=== PATIENT | male | born 1970 | race Two or more races ===

== ENCOUNTER 2021-10-23 14:30 | Emergency (ER) | payer SELFPAY ==
[2021-10-23] MEDS ORDERED: ASPIRIN 81 MG CHEWABLE TABLET ONE (15:10)
[2021-10-23 15:20] LABS: Absolute Lymphocytes (CBC) 1.5 K/uL (0.7-4.9); Hematocrit 38.1 % (39.6-49.0); Lymphocytes % 25.8 % (15.3-44.8); MCV 79.2 fL (80-100); MPV 8.8 fL (7.6-11.3); RBC Red Blood Cell Count 4.81 M/uL (4.33-5.43)
[2021-10-23 15:25] LABS: Protime INR 1.09
[2021-10-23 15:37] LABS: Albumin 4.2 g/dL (3.4-5.0); Bilirubin Direct 0.1 mg/dL (0-0.2); Bilirubin Total 0.6 mg/dL (0.2-1.0); Magnesium 2.1 mg/dL (1.8-2.4); Potassium 4.1 mmol/L (3.5-5.1); Protein, Total 7.9 g/dL (6.4-8.2); Troponin High Sensitivity 4.3 pg/mL (<58.9)
--- NOTE | 2021-10-23 16:26 | RAD REPORT ---
EXAM DESCRIPTION: RAD - Chest Single View - 10/23/2021 4:21 pm CLINICAL HISTORY: mid back pain COMPARISON: No comparisons FINDINGS: Lines: None. Lungs: No evidence of edema or pneumonia. Pleural: No significant pleural effusions or pneumothorax. Cardiac: The heart size is within normal limits. Bones: No acute fractures. Other: IMPRESSION: No acute cardiopulmonary disease.
--- NOTE | 2021-10-23 16:48 | ER ---
Nurse's Notes [facility] Name: Andrew Gaming Age: 51 yrs Sex: Male : 1970 Arrival Date: 10/23/2021 Time: 14:34 Bed 20 Private MD: Diagnosis: Dorsalgia, unspecified Presentation: 10/23 14:38 Chief complaint: Patient states: pain under Left shoulder blade. stated began yesterday vg1 morning. Coronavirus screen: Vaccine status: Patient reports receiving the 2nd dose of the covid vaccine. Client denies travel out of the [place] in the last 14 days. Ebola Screen: Patient denies exposure to infectious person. Patient denies travel to an Ebola-affected area in the 21 days before illness onset. Initial Sepsis Screen: Does the patient meet any 2 criteria? No. Patient's initial sepsis screen is negative. Does the patient have a suspected source of infection? No. Patient's initial sepsis screen is negative. Risk Assessment: Do you want to hurt yourself or someone else? Patient reports no desire to harm self or others. Onset of symptoms was October 22, 2021. 14:38 Method Of Arrival: Ambulatory vg1 14:38 Acuity: ADE 4 vg1 Triage Assessment: 14:42 General: Appears uncomfortable, Behavior is calm, cooperative. Pain: Complains of pain vg1 in left subscapular area Pain currently is 6 out of 10 on a pain scale. Musculoskeletal: Circulation, motion, and sensation intact. Historical: - Allergies: 14:40 No Known Allergies; vg1 - Home Meds: 14:40 B Complex-Vitamin B12 oral [Active]; Aspirin Oral [Active]; prasugrel oral [Active]; vg1 atorvastatin oral [Active]; fenofibrate oral [Active]; - PMHx: 14:42 Hypercholesterolemia; vg1 - Immunization history:: Client reports receiving the 2nd dose of the Covid vaccine. - Social history:: Smoking status: Patient denies any tobacco usage or history of. Screenin:44 Abuse screen: Denies threats or abuse. Nutritional screening: No deficits noted. tw2 Tuberculosis screening: No symptoms or risk factors identified. Fall Risk None identified. Assessment: 15:13 General: Appears in no apparent distress. well groomed, Behavior is calm, cooperative, tw2 appropriate for age. Pain: Complains of pain in left subscapular area. Neuro: Level of Consciousness is awake, alert, obeys commands, Oriented to person, place, time, situation. Cardiovascular: Capillary refill < 3 seconds. Respiratory: Airway is patent Respiratory effort is even, unlabored, Respiratory pattern is regular, symmetrical. GI: No signs and/or symptoms were reported involving the gastrointestinal system. : No signs and/or symptoms were reported regarding the genitourinary system. Derm: Skin is intact, is healthy with good turgor. Musculoskeletal: Range of motion: intact in all extremities. 16:25 Reassessment: Patient appears in no apparent distress at this time. No changes from tw2 previously documented assessment. Patient and/or family updated on plan of care and expected duration. Pain level reassessed. Patient is alert, oriented x 3, equal unlabored respirations, skin warm/dry/pink. 16:59 Reassessment: Patient appears in no apparent distress at this time. No changes from tw2 previously documented assessment. Patient and/or family updated on plan of care and expected duration. Pain level reassessed. Patient is alert, oriented x 3, equal unlabored respirations, skin warm/dry/pink. Vital Signs: 14:38 BP 126 / 92; Pulse 74; Resp 16; Temp 98.2; Pulse Ox 100% ; Weight 92.99 kg; Height 5 vg1 ft. 11 in. (180.34 cm); Pain 6/10; 16:25 BP 144 / 91; Pulse 81; Resp 22; Pulse Ox 100% on R/A; tw2 17:00 BP 137 / 94; Pulse 67; Resp 17; Pulse Ox 100% on R/A; tw2 14:38 Body Mass Index 28.59 (92.99 kg, 180.34 cm) vg1 ED Course: 14:34 Patient arrived in ED. mr 14:36 Romel Nieves PA is PHCP. cp 14:36 Terri Douglas is Attending Physician. cp 14:40 Triage completed. vg1 14:42 Arm band placed on. vg1 14:44 Nataly Chavarria, KRISHAN is Primary Nurse. tw2 14:44 Bed in low position. Call light in reach. Pulse ox on. NIBP on. tw2 15:10 Inserted saline lock: 20 gauge in right antecubital area, using aseptic technique. tw2 Blood collected. 15:11 EKG done, by ED staff, reviewed by Romel FUENTES. em1 16:23 XRAY Chest (1 view) In Process Unspecified. EDMS 16:59 No provider procedures requiring assistance completed. IV discontinued, intact, tw2 bleeding controlled, No redness/swelling at site. Pressure dressing applied. Administered Medications: 15:10 Drug: Aspirin Chewable Tablet 324 mg Route: PO; tw2 17:00 Follow up: Response: No adverse reaction tw2 16:53 Drug: Lidoderm Patch 5 % (700 mg/patch) 1 patches {Note: under LEFT shoulder blade.} tw2 Route: Topical; Site: affected area; 16:53 Drug: Flexeril (cyclobenzaprine) 10 mg Route: PO; tw2 17:00 Follow up: Response: No adverse reaction tw2 Medication: 14:44 VIS not applicable for this client. tw2 Outcome: 16:48 Discharge ordered by . mabel 17:00 Discharged to home ambulatory, with significant other. tw2 17:00 Condition: stable 17:00 Discharge instructions given to patient, significant other, Instructed on discharge instructions, follow up and referral plans. no drinking with medication, no driving heavy equipment, medication usage, Demonstrated understanding of instructions, follow-up care, medications, Prescriptions given X 3. 17:01 Patient left the ED. tw2 Signatures: Dispatcher [employer] EDIN Janna Aguilar, Dany em1 Romel Nieves PA PA cp Wise, Tara, RN RN tw2 Erika Villagran RN RN vg1 Corrections: (The following items were deleted from the chart) 17:01 17:00 Discharge instructions given to patient, significant other, Instructed on tw2 discharge instructions, follow up and referral plans. no drinking with medication, no driving heavy equipment, medication usage, Demonstrated understanding of instructions, follow-up care, medications, Prescriptions given X 2, tw2
--- NOTE | 2021-10-23 16:48 | EDPHYS ---
Physician Documentation [facility] Name: Andrew Gaming Age: 51 yrs Sex: Male : 1970 Arrival Date: 10/23/2021 Time: 14:34 Bed 20 Private MD: ED Physician Terri Douglas HPI: 10/23 15:00 This 51 yrs old Male presents to ER via Ambulatory with complaints of Back Pain. cp 15:00 The patient presents with pain that is acute, with no known mechanism of injury. The cp symptoms are located in the left subscapular area. Onset: The symptoms/episode began/occurred yesterday. The pain does not radiate. Associated signs and symptoms: Pertinent negatives: abdominal pain, chest pain, constipation, fever, numbness, weakness. The problem was sustained from unknown cause. Severity of symptoms: in the emergency department the symptoms are unchanged, despite home interventions. Patient c/o pain to left subscapular area of back that started yesterday. Denies injury. Concerned that pain may be caused by heart. Historical: - Allergies: 14:40 No Known Allergies; vg1 - Home Meds: 14:40 B Complex-Vitamin B12 oral [Active]; Aspirin Oral [Active]; prasugrel oral [Active]; vg1 atorvastatin oral [Active]; fenofibrate oral [Active]; - PMHx: 14:42 Hypercholesterolemia; vg1 - Immunization history:: Client reports receiving the 2nd dose of the Covid vaccine. - Social history:: Smoking status: Patient denies any tobacco usage or history of. ROS: 15:05 Back: Positive for pain at rest, pain with movement, of the left subscapular area, cp Negative for injury or acute deformity. 15:05 Constitutional: Negative for body aches, chills, fever, poor PO intake. cp 15:05 Cardiovascular: Negative for chest pain, edema, palpitations. 15:05 Respiratory: Negative for cough, shortness of breath, wheezing. 15:05 Eyes: Negative for injury, pain, redness, and discharge. cp 15:05 ENT: Negative for drainage from ear(s), ear pain, sore throat, difficulty swallowing, cp difficulty handling secretions. 15:05 Abdomen/GI: Negative for abdominal pain, nausea, vomiting, and diarrhea. 15:05 Neuro: Negative for altered mental status, dizziness, headache, numbness, weakness. 15:05 All other systems are negative. Exam: 15:10 Constitutional: The patient appears in no acute distress, alert, awake, cp non-diaphoretic, non-toxic, well developed, well nourished. 15:10 Head/Face: Normocephalic, atraumatic. cp 15:10 Eyes: Periorbital structures: appear normal, Conjunctiva: normal, no exudate, no injection, Sclera: no appreciated abnormality, Lids and lashes: appear normal, bilaterally. 15:10 ENT: External ear(s): are unremarkable, Nose: is normal, Mouth: Lips: moist, Oral mucosa: pink and intact, moist, Posterior pharynx: Airway: no evidence of obstruction, patent. 15:10 Neck: C-spine: vertebral tenderness, is not appreciated, crepitus, is not appreciated, ROM/movement: is normal, is supple, without pain, no range of motions limitations, no nuchal rigidity. 15:10 Chest/axilla: Inspection: normal, Palpation: is normal, no crepitus, no tenderness. 15:10 Cardiovascular: Rate: normal, Rhythm: regular, Edema: is not appreciated, JVD: is not appreciated. 15:10 Respiratory: the patient does not display signs of respiratory distress, Respirations: normal, no use of accessory muscles, no retractions, labored breathing, is not present, Breath sounds: are clear throughout, no decreased breath sounds, no stridor, no wheezing. 15:10 Abdomen/GI: Inspection: abdomen appears normal, Bowel sounds: active, all quadrants, cp Palpation: abdomen is soft and non-tender, in all quadrants. 15:10 Back: pain, that is moderate, of the left subscapular area, ROM is normal, vertebral tenderness, is not appreciated. 15:10 Neuro: Orientation: to person, place \T\ time. Mentation: is normal, Motor: moves all fours, strength is normal, Sensation: is normal. 15:10 Skin: cellulitis, is not appreciated, no rash present. cp Vital Signs: 14:38 BP 126 / 92; Pulse 74; Resp 16; Temp 98.2; Pulse Ox 100% ; Weight 92.99 kg; Height 5 vg1 ft. 11 in. (180.34 cm); Pain 6/10; 16:25 BP 144 / 91; Pulse 81; Resp 22; Pulse Ox 100% on R/A; tw2 17:00 BP 137 / 94; Pulse 67; Resp 17; Pulse Ox 100% on R/A; tw2 14:38 Body Mass Index 28.59 (92.99 kg, 180.34 cm) vg1 MDM: 14:50 Patient medically screened. cp 16:48 Data reviewed: vital signs, nurses notes, lab test result(s), EKG, radiologic studies, cp plain films. 16:48 Differential diagnosis: Cholelithiasis vertebral fracture, strain, acute LA, pulmonary cp embolism, pulled muscle. Test interpretation: by ED physician or midlevel provider: ECG, plain radiologic studies. Counseling: I had a detailed discussion with the patient and/or guardian regarding: the historical points, exam findings, and any diagnostic results supporting the discharge/admit diagnosis, lab results, radiology results, the need for outpatient follow up, a family practitioner, to return to the emergency department if symptoms worsen or persist or if there are any questions or concerns that arise at home. 10/23 14:54 Order name: Basic Metabolic Panel 10/23 14:54 Order name: CBC with Diff 10/23 14:54 Order name: D-Dimer 10/23 14:54 Order name: LFT's 10/23 14:54 Order name: Magnesium 10/23 14:54 Order name: NT PRO-BNP 10/23 14:54 Order name: PT-INR 10/23 14:54 Order name: Troponin HS 10/23 14:54 Order name: XRAY Chest (1 view) 10/23 14:54 Order name: EKG; Complete Time: 14:55 10/23 14:54 Order name: Cardiac monitoring; Complete Time: 15:13 10/23 14:54 Order name: EKG - Nurse/Tech; Complete Time: 15:11 10/23 14:54 Order name: IV Saline Lock; Complete Time: 15:13 10/23 14:54 Order name: Labs collected and sent; Complete Time: 15:13 10/23 14:54 Order name: O2 Per Protocol; Complete Time: 15:00 10/23 14:54 Order name: O2 Sat Monitoring; Complete Time: 15:00 cp Administered Medications: 15:10 Drug: Aspirin Chewable Tablet 324 mg Route: PO; tw2 17:00 Follow up: Response: No adverse reaction tw2 16:53 Drug: Lidoderm Patch 5 % (700 mg/patch) 1 patches {Note: under LEFT shoulder blade.} tw2 Route: Topical; Site: affected area; 16:53 Drug: Flexeril (cyclobenzaprine) 10 mg Route: PO; tw2 17:00 Follow up: Response: No adverse reaction tw2 Disposition Summary: 10/23/21 16:48 Discharge Ordered Location: Home cp Problem: new cp Symptoms: have improved cp Condition: Stable cp Diagnosis - Dorsalgia, unspecified cp Followup: cp - With: Private Physician - When: 2 - 3 days - Reason: Recheck today's complaints Discharge Instructions: - Acute Back Pain, Adult cp - Discharge Summary Sheet tw2 Forms: - Medication Reconciliation Form cp - Work release form tw2 - Thank You Letter cp - Antibiotic Education cp - Prescription Opioid Use cp Prescriptions: - Lidoderm 5 % Topical adhesive patch,medicated - apply 1 patch by TOPICAL route once daily; 10 patch; Refills: 0, Product cp Selection Permitted - Cyclobenzaprine 10 mg Oral Tablet - take 1 tablet by ORAL route every 8 hours As needed; 20 tablet; Refills: 0, cp Product Selection Permitted - Diclofenac Sodium 75 mg Oral Tablet Sustained Release - take 1 tablet by ORAL route 2 times per day; 30 tablet; Refills: 0, Product cp Selection Permitted Signatures: Dispatcher [employer] Romel Bains PA PA cp Wise, Tara RN RN tw2 Erika Villagran RN RN vg1
[2021-10-23] MEDS ORDERED: LIDOCAINE 4% PATCH ONE (16:54)
[2021-10-23] MEDS ORDERED: CYCLOBENZAPRINE 10 MG TAB ONE (16:54)
[2021-10-23 17:09] VITALS: TEMP 98.2; O2SAT 100
[2021-10-23 17:12] VITALS: BP 137/94
--- NOTE | 2021-10-25 09:30 | EKG ---
Test Date: 2021-10-23 Test Time: 15:10:22 Visiting Professor: VIC MEASUREMENT RESULTS: Intervals: Rate: 78 PA: 144 QRSD: 80 QT: 366 QTc: 417 Industry: P: 66 PA: 144 QRS: 2 T: 54 INTERPRETIVE STATEMENTS: Normal sinus rhythm Septal infarct, age undetermined Abnormal ECG No previous ECG available for comparison Electronically Signed On 10-25-21 09:25:09 CDT by Nishant Jacobs
== END 2021-10-23 17:01 | disposition home or self-care (01) ==
LOC: ER 14:30
DX: M54.9 Dorsalgia, unspecified (principal); E78.00 Pure hypercholesterolemia, unspecified; Z79.82 Long term (current) use of aspirin
CPT/HCPCS: 36415; 71045; 80048; 80076; 83735; 83880; 84484; 85025; 85379; 85610; 93005; 99284; J2001